=== PATIENT | male | born 1925 | race Caucasian/White ===

== ENCOUNTER 2016-11-09 12:24 | Inpatient (IN) | payer OTHER, BC ==
[2016-11-09 12:35] VITALS: TEMP 98; BMI 24.0
[2016-11-09] MEDS ORDERED: ASPIRIN 81 MG CHEWABLE TABLETS PO ONE (12:44)
[2016-11-09] MEDS ORDERED: ASPIRIN 81 MG CHEWABLE TABLETS ONE (13:06)
--- NOTE | 2016-11-09 13:13 | PDOC ---
History of Present Illness - General History Source: Patient, Family Exam Limitations: No Limitations <Mj Garcia - Last Filed: 11/09/16 14:08> <Viky Shine - Last Filed: 11/09/16 14:20> - General Chief Complaint: Congestive Heart Failure Stated Complaint: CONGESTIVE HEART FAILURE (PCP SENT) Time Seen by Provider: 11/09/16 12:37 - History of Present Illness Initial Comments: The patient is a 89 year old male, accompanied by family, sent by general service officer , with a significant past medical history of HTN, CHF, CAD, who presents to the emergency department today for further evaluation of dyspnea x 1 day. The patient states that his dyspnea is worse on exertion and is associated with weight loss secondary to decreased appetite. The patient also reports intermittent chest pain but notes he has not had any chest pain today. The patient denies fever, chills, and sweats. The patient denies nausea, vomiting, and diarrhea. PMD: Dr. Meade [phone] CARDIO: Dr. Dudley [phone] PAST MEDICAL HISTORY: HTN, CHF, CAD PAST SURGICAL HISTORY: Stent placement x4, aortic synosis SOCIAL HISTORY: Lives at home alone ([place]) Past History <Mj Garcia - Last Filed: 11/09/16 14:08> - Past Medical History Cardiac Disorders: Yes (stents) HTN: Yes - Surgical History Cardiac Surgery: Yes (stent) - Psycho/Social/Smoking Cessation Hx Anxiety: No Suicidal Ideation: No Smoking History: Never smoked Have you smoked in the past 12 months: No Information on smoking cessation initiated: No Hx Alcohol Use: No Drug/Substance Use Hx: No Substance Use Type: None <Viky Shine - Last Filed: 11/09/16 14:20> - Past Medical History Allergies/Adverse Reactions: Allergies Allergy/AdvReac Type Severity Reaction Status Date / Time No Known Allergies Allergy Verified 11/09/16 12:32 Home Medications: Ambulatory Orders Aspirin [Aspirin EC] 81 mg PO DAILY 11/09/16 Atorvastatin Calcium [Lipitor] 10 mg PO HS 11/09/16 Furosemide [Lasix -] 20 mg PO DAILY 11/09/16 Isosorbide Mononitrate [Imdur] 60 mg PO DAILY 11/09/16 Metoprolol Succinate [Toprol Xl -] 50 mg PO DAILY 11/09/16 Multivitamin [Poly-Vitamin] 1 each PO DAILY 11/09/16 Tamsulosin HCl [Flomax] 0.4 mg PO DAILY 11/09/16 Verapamil HCl [Verapamil ER] 240 mg PO DAILY 11/09/16 Review of Systems - Review of Systems Able to Perform ROS?: Yes <Mj Garcia - Last Filed: 11/09/16 14:08> <Viky Shine - Last Filed: 11/09/16 14:20> - Review of Systems Comments:: CONSTITUTIONAL: Present: Decreased appetite Absent: fever, chills, diaphoresis, generalized weakness, malaise. HEENT: Absent: rhinorrhea, nasal congestion, throat pain, throat swelling, difficulty swallowing, mouth swelling, ear pain, eye pain, visual Changes CARDIOVASCULAR: Present: Chest pain Absent: Syncope, palpitations, irregular heart rate, lightheadedness, peripheral edema RESPIRATORY: Present: Shortness of breath, dyspnea with exertion. Absent: Orthopnea, wheezing, stridor, hemoptysis GASTROINTESTINAL: Absent: abdominal pain, abdominal distension, nausea, vomiting, diarrhea, constipation, melena, hematochezia GENITOURINARY: Absent: dysuria, frequency, urgency, hesitancy, hematuria, flank pain, genital pain MUSCULOSKELETAL: Absent: myalgia, arthralgia, joint swelling SKIN: Absent: rash, itching, pallor HEMATOLOGIC/IMMUNOLOGIC: Absent: easy bleeding, easy bruising, lymphadenopathy, frequent infections ENDOCRINE: Present: Weight loss Absent: unexplained weight gain, heat intolerance, cold intolerance NEUROLOGIC: Absent: headache, focal weakness or paresthesias, dizziness, unsteady gait, seizure, mental status changes, bladder or bowel incontinence PSYCHIATRIC: Absent: anxiety, depression, suicidal or homicidal ideation, hallucinations. ( Mj Garcia) *Physical Exam <Mj Garcia - Last Filed: 11/09/16 14:08> <Viky Shine - Last Filed: 11/09/16 14:20> - Vital Signs Last Vital Signs Temp Pulse Resp BP Pulse Ox 98 F 85 18 127/57 96 11/09/16 12:32 11/09/16 12:32 11/09/16 12:32 11/09/16 12:32 11/09/16 13:22 - Physical Exam Comments: GENERAL: Well developed, well nourished. Awake and alert. In no acute distress. HEENT: Normocephalic, atraumatic. PERRLA, EOMI. No conjunctival pallor. Sclera are non- icteric. Moist mucous membranes. Oropharynx is clear. NECK: Supple. Full ROM. No JVD. Carotid pulses 2+ and symmetric, without bruits. No thyromegaly. No lymphadenopathy. CARDIOVASCULAR: Regular rate and rhythm. Holosystolic murmur greatest over aortic valve, rubs, or gallops. Distal pulses are 2+ and symmetric. PULMONARY: (+) Tachypneic. Lungs clear to auscultation bilaterally. No wheezing, rales or rhonchi. ABDOMINAL: Soft. Non-tender. Non-distended. No rebound or guarding. No organomegaly. Normoactive bowel sounds. MUSCULOSKELETAL Normal range of motion at all joints. No bony deformities or tenderness. No CVA tenderness. EXTREMITIES: No cyanosis. No clubbing. No edema. No calf tenderness. SKIN: Warm and dry. Normal capillary refill. No rashes. No jaundice. NEUROLOGICAL: Alert, awake, appropriate. Cranial nerves 2-12 intact. No deficits to light touch and temperature in face, upper extremities and lower extremities. No motor deficits in the in face, upper extremities and lower extremities. Normoreflexic in the upper and lower extremities. Normal speech. Toes are downgoing bilaterally. PSYCHIATRIC: Cooperative. Good eye contact. Appropriate mood and affect. (Mj Garcia) Heart Score/ECG Review <Mj Garcia - Last Filed: 11/09/16 14:08> <Viky Shine - Last Filed: 11/09/16 14:20> - ECG Impressions Comment:: Sinus rhythm with premature supraventricular complexes. Right bundle branch block. Abnormal ECG. (Mj Garcia) ED Treatment Course - LABORATORY CBC & Chemistry Diagram: 11/09/16 13:22 11/09/16 13:22 <Mj Garcia - Last Filed: 11/09/16 14:08> - LABORATORY CBC & Chemistry Diagram: 11/09/16 13:22 11/09/16 13:22 <Viky Shine - Last Filed: 11/09/16 14:20> - ADDITIONAL ORDERS Additional order review: Laboratory Results 11/09/16 13:22 Sodium 139 Potassium 4.6 Chloride 99 Carbon Dioxide 31 Anion Gap 9 BUN 13 D Creatinine 0.9 Creat Clearance w eGFR > 60 Random Glucose 102 Calcium 8.9 Total Bilirubin 0.6 AST 13 L ALT 18 Alkaline Phosphatase 93 Creatine Kinase 106 Troponin I < 0.02 B-Natriuretic Peptide 283.03 Total Protein 7.1 Albumin 3.3 L 11/09/16 13:22 RBC 4.56 MCV 90.0 MCHC 32.9 RDW 14.8 MPV 9.4 Neutrophils % 75.8 Lymphocytes % 9.2 Monocytes % 12.4 H Eosinophils % 2.0 Basophils % 0.6 - RADIOLOGY Radiology Studies Ordered: Category Date Time Status CHEST X-RAY PORTABLE* [RAD] Stat Radiology 11/09/16 12:46 Completed EXAM#: TYPE/EXAM: RESULT: [id number] RAD/CHEST X-RAY PORTABLE* Chest discomfort: Chest pain. There is is a weak inspiratory effort with elevated right hemidiaphragm, right lung mass, central crowding, sclerotic knob and questionable atelectatic changes at the bases. Follow-up recommended. CT suggested. Impression: Weak inspiration. Right lung mass. CT suggested. Reported By: Mario Bhatt MD 11/09/16 [id number] (Mj Garcia) - Medications Given in the ED: ED Medications Discontinued Medications Generic Name Dose Route Start Last Admin Trade Name Freq PRN Reason Stop Dose Admin Aspirin 162 mg 11/09/16 12:44 11/09/16 13:26 Asa - PO 11/09/16 12:45 162 mg ONCE ONE Administration Furosemide 20 mg 11/09/16 13:56 11/09/16 14:02 Lasix Injection - IVPUSH 11/09/16 13:57 20 mg ONCE ONE Administration Medical Decision Making <Mj Garcia - Last Filed: 11/09/16 14:08> <Viky Shine - Last Filed: 11/09/16 14:20> - Medical Decision Making 11/09/16 14:[address] Miguelangel pierre. Case discussed. Agreed to admit. (Mj Garcia) 11/09/16 13:36 Pt is an 89 year old male who was sent in by his general service officer, Dr. Dudley, for worsening LINDSEY and shortness of breath. Patient has an extensive cardiac history with stents x 4 and aortic stenosis. Patient is complaining of shortness of breath and has conversational dyspnea on my exam. Vital signs are normal, and lungs are clear to auscultation bilaterally. No peripheral edema. EKG shows new RBB without evidence of acute ischemia. CXR shows poor inspiratory effort, questionable R lung mass. Given his extensive cardiac history and his age, will admit patient to medicine for continued monitoring, and possible echo and stress test. Will check labs and cardiac enzymes. Will discuss case with patient's PMD, Dr. Emery. 11/09/16 14:19 Case discussed with patient's general service officer, Dr. Gillespie and with patient's PMD, Dr. Meade. Patient will be admitted to Dr. Meade's service. Labs are remarkable only for BNP of 235. Given lasix 20 mg IV. Will admit to telemetry on Dr. Meade's service. (Viky Shine) *DC/Admit/Observation/Transfer <Mj Garcia - Last Filed: 11/09/16 14:08> - Discharge Dispostion Admit: Yes <Viky Shine - Last Filed: 11/09/16 14:20> Diagnosis at time of Disposition: Congestive heart failure - Discharge Dispostion Decision to Admit order Date/Time: Decision to Admit Order Category Date Time Status Decision to Admit to Hospital Routine Admission 11/09/16 14:16 Active - Referrals Referrals: Cecil Meade MD [Primary Care Provider] - - Attestations Scribe Attestion: Documentation prepared by Mj Garcia, acting as medical staff services manager for Viky Shine MD. (Mj Garcia)
[2016-11-09 13:30] LABS: BASOPHIL 0.6 % (0-2.0); MCH 29.6 pg (25.7-33.7); MCHC 32.9 g/dl (32.0-35.9); MEAN PLT VOLUME 9.4 fl (7.5-11.1); NEUTROPHILS 75.8 % (42.8-82.8); PLATELET COUNT 262 K/MM3 (134-434); RDW 14.8 % (11.9-15.9); WHITE BLOOD COUNT 11.5 K/mm3 (4.0-10.0)
[2016-11-09 13:48] LABS: INR 1.18 (0.82-1.09)
[2016-11-09] MEDS ORDERED: FUROSEMIDE 40 MG/4 ML INJECTABLE VIAL IVPUSH ONE (13:56)
--- NOTE | 2016-11-09 13:58 | EKG ---
Test Reason : Blood Pressure : / mmHG Vent. Rate : 084 BPM Atrial Rate : 084 BPM P-R Int : 140 ms QRS Dur : 140 ms QT Int : 390 ms P-R-T Axes : 058 073 -03 degrees QTc Int : 460 ms SINUS RHYTHM WITH PREMATURE SUPRAVENTRICULAR COMPLEXES RIGHT BUNDLE BRANCH BLOCK ABNORMAL ECG WHEN COMPARED WITH ECG OF 09-MAR-2010 03:30, PREMATURE SUPRAVENTRICULAR COMPLEXES ARE NOW PRESENT Confirmed by FOREIGN BROWN, JOCELYN ([id number]) on 11/09/2016 1:58:21 PM Referred By: Confirmed By:JOCELYN CARRASQUILLO MD
[2016-11-09] MEDS ORDERED: FUROSEMIDE 40 MG/4 ML INJECTABLE VIAL ONE (14:00)
--- NOTE | 2016-11-09 14:05 | CON.CARD ---
Consult Consult Specialty:: Cardiology Referred by:: Cecil Meade MD Reason for Consultation:: Dyspnea - History of Present Illness Chief Complaint: Dyspnea History of Present Illness: The patient is a 89 year old male with a significant past medical history of HTN/HCVD, diastolic dysfunction, CAD s/p PCI (stent), angina pectoris, moderate aortic stenosis referred to the emergency department today for further evaluation of progressive dyspnea on exertion. The patient states that his dyspnea is worse on exertion and is associated with weight loss secondary to decreased appetite. The patient also reports intermittent non-exertional chest pain, but notes he has not had any chest pain today. He denies near or true syncope, orthopnea, PND or LE edema. PMD: Dr. Meade [phone] CARDIO: Dr. Dudley [phone] PAST MEDICAL HISTORY: HTN, CHF, CAD PAST SURGICAL HISTORY: Stent placement x4, aortic synosis SOCIAL HISTORY: Lives at home alone ([place]) - History Source History Provided By: Patient Limitations to Obtaining History: No Limitations - Past Medical History Cardio/Vascular: Yes: Aortic Stenosis, CAD, HTN, Hyperlipdemia - Alcohol/Substance Use Hx Alcohol Use: No - Smoking History Smoking history: Never smoked Have you smoked in the past 12 months: No Home Medications - Allergies Allergies/Adverse Reactions: Allergies Allergy/AdvReac Type Severity Reaction Status Date / Time No Known Allergies Allergy Verified 11/09/16 12:32 - Home Medications Home Medications: Ambulatory Orders Aspirin [Aspirin EC] 81 mg PO DAILY 11/09/16 Atorvastatin Calcium [Lipitor] 10 mg PO HS 11/09/16 Furosemide [Lasix -] 20 mg PO DAILY 11/09/16 Isosorbide Mononitrate [Imdur] 60 mg PO DAILY 11/09/16 Metoprolol Succinate [Toprol Xl -] 50 mg PO DAILY 11/09/16 Multivitamin [Poly-Vitamin] 1 each PO DAILY 11/09/16 Tamsulosin HCl [Flomax] 0.4 mg PO DAILY 11/09/16 Verapamil HCl [Verapamil ER] 240 mg PO DAILY 11/09/16 Review of Systems - Review of Systems Respiratory: reports: Exercise Intolerance, SOB on Exertion Vital Signs: Vital Signs Temperature 98 F 11/09/16 12:32 Pulse Rate 85 11/09/16 12:32 Respiratory Rate 18 11/09/16 12:32 Blood Pressure 127/57 11/09/16 12:32 O2 Sat by Pulse Oximetry (%) 96 11/09/16 13:22 Constitutional: Yes: No Distress, Calm Neck: Yes: Supple Respiratory: Yes: Regular, Diminished Gastrointestinal: Yes: Normal Bowel Sounds, Soft Cardiovascular: Yes: Regular Rate and Rhythm JVD: No Carotid Bruit: No Heart Sounds: Yes: S1, S2 Murmur: Yes: Systolic Murmur, Grade 2 Edema: No - Other Data Labs, Other Data: CBC, BMP 11/09/16 13:22 NSR @ 84 PAC, RBBB Ejection Fraction %: LVEF > or = 40 % Imaging - Results Chest X-ray: Report Reviewed (Right lung mass) Problem List - Problems (1) Dyspnea on exertion Code(s): R06.09 - OTHER FORMS OF DYSPNEA (2) Mass of right lung Code(s): R91.8 - OTHER NONSPECIFIC ABNORMAL FINDING OF LUNG FIELD (3) Coronary artery disease Code(s): I25.10 - ATHSCL HEART DISEASE OF [place] CORONARY ARTERY W/O ANG PCTRS Qualifiers: Coronary Disease-Associated Artery/Lesion type: [place] artery [place] vs. transplanted heart: [place] heart Associated angina: without angina Qualified Code(s): I25.10 - Atherosclerotic heart disease of [place] coronary artery without angina pectoris (4) Status post coronary artery stent placement Code(s): Z95.5 - PRESENCE OF CORONARY ANGIOPLASTY IMPLANT AND GRAFT (5) Hypertensive cardiomyopathy Code(s): I11.9 - HYPERTENSIVE HEART DISEASE WITHOUT HEART FAILURE I43 - CARDIOMYOPATHY IN DISEASES CLASSIFIED ELSEWHERE Qualifiers: Heart failure presence: without heart failure Qualified Code(s): I11.9 - Hypertensive heart disease without heart failure; I43 - Cardiomyopathy in diseases classified elsewhere (6) Hyperlipidemia Code(s): E78.5 - HYPERLIPIDEMIA, UNSPECIFIED Qualifiers: Hyperlipidemia type: pure hypercholesterolemia Qualified Code(s): E78.00 - Pure hypercholesterolemia, unspecified; E78.0 - Pure hypercholesterolemia (7) Mild aortic valve stenosis Code(s): I35.0 - NONRHEUMATIC AORTIC (VALVE) STENOSIS (8) Diastolic dysfunction without heart failure Code(s): I51.9 - HEART DISEASE, UNSPECIFIED Assessment/Plan 10/10/2015 Echo: Normal LV size and fxn, mild MR, TR, AR, mild LAE, mild NANCY 1.2 cm^2, MG 22 mm Hg 1. Exercise dyspnea referable to diastolic dysfunction and mild aortic stenosis 2. CAD s/p PCI (stent), angina pectoris 3. Right lung mass, etiology to be elucidated 4. HTN/HCVD 5. Hyperlipidemia P:1. F/u chest CT and echocardiogram to assess ventricular and valve fxn 2. Diuresis with Lasix 20 qd and monitor diuretic response, renal fxn and electrolytes 3. Continue Toprol XL 50 qd, Imdur 60 qd, Lipitor 10 qhs, ASA 81 qd, hold [place] SR 240 qd for now 4. Thank you for consultative opportunity
[2016-11-09 14:06] LABS: ALBUMIN 3.3 g/dl (3.4-5.0); ALK PHOS 93 U/L (45-117); ANION GAP 9 (8-16); BILIRUBIN,TOTAL 0.6 mg/dL (0.2-1.0); CALCIUM 8.9 mg/dL (8.5-10.1); CO2 31 mmol/L (21-32); COCKROFT - GAULT 49.97; CREATININE 0.9 mg/dL (0.7-1.3); GLUCOSE,RANDOM 102 mg/dL (74-106); SGOT/AST 13 U/L (15-37); SGPT/ALT 18 U/L (12-78); TOT PROT 7.1 g/dl (6.4-8.2); TROPONIN I < 0.02 ng/ml (0.00-0.05)
[2016-11-09] MEDS ORDERED: METOPROLOL SUCCINATE 50 MG TAB.SR.24H (FP) PO SCH (14:30)
[2016-11-09 14:36] LABS: MAGNESIUM 2.2 mg/dL (1.8-2.4)
[2016-11-09 14:46] VITALS: BP 142/66; PULSE 88
--- NOTE | 2016-11-09 17:12 | PDOC ---
*Physical Exam - Vital Signs Last Vital Signs Temp Pulse Resp BP Pulse Ox 98 F 88 30 H 142/66 97 11/09/16 12:32 11/09/16 14:44 11/09/16 14:44 11/09/16 14:44 11/09/16 15:10 ED Treatment Course - LABORATORY CBC & Chemistry Diagram: 11/09/16 13:22 11/09/16 13:22 - ADDITIONAL ORDERS Additional order review: Laboratory Results 11/09/16 11/09/16 11/09/16 13:22 13:22 13:22 INR 1.18 H Sodium 139 Cancelled Potassium 4.6 Cancelled Chloride 99 Cancelled Carbon Dioxide 31 Cancelled Anion Gap 9 Cancelled BUN 13 D Cancelled Creatinine 0.9 Cancelled Creat Clearance w eGFR > 60 Cancelled Random Glucose 102 Cancelled Calcium 8.9 Cancelled Magnesium 2.2 Cancelled Total Bilirubin 0.6 Cancelled AST 13 L Cancelled ALT 18 Cancelled Alkaline Phosphatase 93 Cancelled Creatine Kinase 106 Cancelled Troponin I < 0.02 Cancelled B-Natriuretic Peptide 283.03 Total Protein 7.1 Cancelled Albumin 3.3 L Cancelled 11/09/16 13:22 RBC 4.56 MCV 90.0 MCHC 32.9 RDW 14.8 MPV 9.4 Neutrophils % 75.8 Lymphocytes % 9.2 Monocytes % 12.4 H Eosinophils % 2.0 Basophils % 0.6 - Medications Given in the ED: ED Medications Discontinued Medications Generic Name Dose Route Start Last Admin Trade Name Freq PRN Reason Stop Dose Admin Aspirin 162 mg 11/09/16 12:44 11/09/16 13:26 Asa - PO 11/09/16 12:45 162 mg ONCE ONE Administration Furosemide 20 mg 11/09/16 13:56 11/09/16 14:02 Lasix Injection - IVPUSH 11/09/16 13:57 20 mg ONCE ONE Administration Medical Decision Making - Medical Decision Making 11/09/16 17:11 Pt awaiting bed for admission for CHF exacerbation. Called to bedside because pt refusing admission now and wants to sign out AMA. His VS are normal, he has no acute distress. He and his nephew understand and accept all levels of risks of leaving before evaluation/treatment completed. Understand return criteria. Will notify Dr. Means. *DC/Admit/Observation/Transfer Diagnosis at time of Disposition: Congestive heart failure
[2016-11-09] MEDS ORDERED: ATORVASTATIN CA 10 MG TABLET (FP) PO SCH (22:00)
[2016-11-10] MEDS ORDERED: ISOSORBIDE MONONITRATE 60 MG TAB.SR.24H (FP) PO SCH (10:00)
[2016-11-10] MEDS ORDERED: ASPIRIN 81 MG CHEWABLE TABLETS PO SCH (10:00)
[2016-11-10] MEDS ORDERED: FUROSEMIDE 20 MG TABLET (FP) PO SCH (10:00)
== END 2016-11-09 17:13 | disposition left against medical advice (07) | DRG 292 ==
LOC: JER 12:24 → JERBED 14:16
PROVIDERS: ADMIT Specialist; ATTEND Specialist
DX: I11.0 Hypertensive heart disease with heart failure (principal); J98.11 Atelectasis; I25.118 Atherosclerotic heart disease of native coronary artery with other forms of angina pectoris; I35.0 Nonrheumatic aortic (valve) stenosis; Z95.5 Presence of coronary angioplasty implant and graft; E78.5 Hyperlipidemia, unspecified; I50.30 Unspecified diastolic (congestive) heart failure; I42.8 Other cardiomyopathies; R91.8 Other nonspecific abnormal finding of lung field
CPT/HCPCS: 36415; 71010-TC; 71250-TC; 80053; 82550; 83735; 83880; 84484; 85025; 85610; 93005; 93010; 93306-TC; 99285-25